=== PATIENT | female | born 1955 | race Hispanic/Latino ===

== ENCOUNTER 2017-07-08 15:35 | Observation (INO) | payer MEDICARE ==
[~2017-07-08] VITALS: Ht 154.9 cm; Wt 84.1 kg
[2017-07-08 15:57] LABS: EOSINOPHILS % (AUTO) 5.1 % (0.0-8.0); HEMATOCRIT 33.6 % (36-48); LYMPHOCYTES % (AUTO) 23.9 % (21.0-51.0); MEAN CORPUSCULAR HEMOGLOBIN 29.2 pg (27.0-33.0); MEAN CORPUSCULAR HGB CONC 33.8 g/dL (32.0-36.0); MEAN CORPUSCULAR VOLUME 86.4 fL (79-99); MONOCYTES % (AUTO) 7.6 % (3.0-13.0); NEUTROPHILS % (AUTO) 62.4 % (40.0-77.0); PLATELET COUNT (AUTO) 173 K/uL (130-400); RED BLOOD CELL COUNT(AUTO) 3.89 MIL/uL (4.00-5.50); RED CELL DISTRIBUTION WIDTH 14.3 % (11.0-15.5); WHITE BLOOD COUNT (AUTO) 7.4 K/uL (4.8-10.8)
[2017-07-08 16:12] LABS: CREATININE 1.7 mg/dL (0.5-1.5); POTASSIUM 5.3 mmol/L (3.5-5.1)
[2017-07-08 16:15] LABS: PARTIAL THROMBOPLASTIN TIME 25.2 SEC (26.3-35.5); PROTHROMBIN TIME 10.5 SEC (9.6-11.6)
[2017-07-08 16:17] LABS: ALBUMIN 3.3 g/dL (3.5-5.0); BILIRUBIN,TOTAL 0.3 mg/dL (0.2-1.0); TOTAL PROTEIN, SERUM 7.3 g/dL (6.0-8.3)
[2017-07-08 16:42] LABS: B-TYPE NATRIURETIC PEPTIDE 440 pg/mL (0-100)
[2017-07-08] MEDS ORDERED: NITROGLYCERIN 1GM/1 INCH PACKET TD ONE (17:33)
[2017-07-08 20:47] VITALS: BP 147/67
[2017-07-08 23:00] VITALS: BP 139/75
[2017-07-08] MEDS ORDERED: SODIUM POLYSTYRENE SULFONATE 15 GM/60 ML ML ONE ×2 (23:24)
[2017-07-08] MEDS ORDERED: SODIUM POLYSTYRENE SULFONATE 15 GM/60 ML ML PO SCH (23:30)
[2017-07-08] MEDS: NITROGLYCERIN 1GM/1 INCH PACKET TD SCH (23:30)
[2017-07-09] VITALS (7 sets, daily range): BP systolic 136–184; BP diastolic 66–79
[2017-07-09 00:15] LABS: CREATINE KINASE MB 1.2 ng/mL (0.5-3.6); CREATINE KINASE, TOTAL 69 U/L (21-232); MYOGLOBIN 77 ng/mL (10-92); TROPONIN I < 0.04 ng/mL (0.00-0.06)
[2017-07-09] MEDS ORDERED: ACET-66 PO (01:12)
[2017-07-09] MEDS ORDERED: CLOP75TA32 PO (01:12)
[2017-07-09] MEDS ORDERED: ISOS60TA4 PO (01:12)
[2017-07-09] MEDS ORDERED: ATOR40TA71 PO (01:12)
[2017-07-09] MEDS ORDERED: IRON-6 PO (01:12)
[2017-07-09] MEDS ORDERED: IRON FERROUS PO (01:12)
[2017-07-09] MEDS ORDERED: FURO40TA5 PO (01:12)
[2017-07-09] MEDS ORDERED: CARV25TA PO (01:12)
[2017-07-09] MEDS ORDERED: NITR0.4T SL (01:12)
[2017-07-09] MEDS ORDERED: RANO500T3 PO (01:12)
[2017-07-09] MEDS ORDERED: ENAL20TA PO (01:12)
[2017-07-09 08:39] LABS: HEMOGLOBIN A1C 8.8 % (4.0-6.0)
[2017-07-09 09:00] LABS: CREATINE KINASE MB 1.3 ng/mL (0.5-3.6); CREATINE KINASE, TOTAL 83 U/L (21-232); CREATININE 1.6 mg/dL (0.5-1.5); MYOGLOBIN 79 ng/mL (10-92); POTASSIUM 5.3 mmol/L (3.5-5.1); THYROID STIMULATING HORMONE 1.61 uIU/mL (0.36-3.74); TROPONIN I < 0.04 ng/mL (0.00-0.06)
[2017-07-09] MEDS ORDERED: METOPROLOL TARTRATE 25 MG TAB PO SCH (09:00)
[2017-07-09] MEDS: NITROGLYCERIN 1GM/1 INCH PACKET TD SCH (09:12)
[2017-07-09] MEDS ORDERED: ACETAMINOPHEN EXTRA STRENGTH 500 MG TABLET PO PRN (09:30)
[2017-07-09] MEDS ORDERED: NITROGLYCERIN 0.4 MG SL TAB SL PRN (09:30)
[2017-07-09] MEDS: ENALAPRIL MALEATE 10 MG TABLET PO SCH (11:37)
[2017-07-09] MEDS: REGADENOSON 0.4 MG/5 ML PF SYG IVP SCH ×2 (13:15→16:34)
[2017-07-09] MEDS: RANOLAZINE 500 MG TAB.SR.12H PO SCH (20:11)
[2017-07-09] MEDS: CARVEDILOL 25 MG TABLET PO SCH (20:11)
[2017-07-09] MEDS ORDERED: ATORVASTATIN CALCIUM 40 MG TABLET PO SCH (21:00)
[2017-07-09] MEDS ORDERED: DEXTROSE 50%-WATER 50 ML DISP.SYRIN IV PRN (22:45)
[2017-07-09] MEDS ORDERED: GLUCAGON 1MG KIT 1 MG ML IM PRN (22:45)
[2017-07-10 03:28] VITALS: BP 160/66
[2017-07-10] MEDS: INSULIN HUMULIN R 100 UNIT/ML 3ML SQ SCH ×2 (06:18→11:12)
[2017-07-10 07:00] VITALS: BP 182/77
[2017-07-10] MEDS ORDERED: INSULIN HUMULIN R 100 UNIT/ML 3ML SQ SCH ×3 (07:30→23:55)
[2017-07-10] MEDS ORDERED: FE FUMARATE/FA/MV, MIN COMB#15 1 TAB PO SCH (09:00)
[2017-07-10] MEDS ORDERED: ISOSORBIDE MONO 60 MG TAB.SR PO SCH (09:00)
[2017-07-10] MEDS ORDERED: CLOPIDOGREL BISULFATE 75 MG TAB PO SCH (09:00)
[2017-07-10] MEDS ORDERED: FERROUS SULFATE 325 MG TABLET.DR PO SCH (09:00)
[2017-07-10] MEDS ORDERED: FUROSEMIDE 40 MG TABLET PO SCH (09:00)
[2017-07-10] MEDS: RANOLAZINE 500 MG TAB.SR.12H PO SCH (09:40)
[2017-07-10] MEDS: ENALAPRIL MALEATE 10 MG TABLET PO SCH (09:40)
[2017-07-10] MEDS: CARVEDILOL 25 MG TABLET PO SCH (09:41)
[2017-07-10 10:28] VITALS: BP 157/78
[2017-07-10 11:00] VITALS: BP 146/69
== END 2017-07-10 12:50 | disposition home or self-care (01) ==
LOC: EDH 15:35 → EDHIP 17:25 → 2AH 20:48
PROVIDERS: ADMIT Family Medicine; ATTEND Family Medicine
DX: I25.119 Atherosclerotic heart disease of native coronary artery with unspecified angina pectoris (principal); N17.9 Acute kidney failure, unspecified; I12.9 Hypertensive chronic kidney disease with stage 1 through stage 4 chronic kidney disease, or unspecified chronic kidney disease; N18.9 Chronic kidney disease, unspecified; E78.5 Hyperlipidemia, unspecified; E11.22 Type 2 diabetes mellitus with diabetic chronic kidney disease; E11.65 Type 2 diabetes mellitus with hyperglycemia; E87.5 Hyperkalemia
CPT/HCPCS: 36415 ×2; 71045; 78452; 80048; 80053; 82550 ×3; 82553 ×2; 82948 ×7; 83036; 83874 ×2; 83880; 84443; 84484 ×3; 85025; 85610; 85730; 93005 ×3; 93017; 93970; 96372; 99285; A9500 ×2; G0378 ×43; J1815 ×2; J2785; 96374

== ENCOUNTER → 2017-10-23 | Outpatient (CLI) | payer MEDICARE ==
[~2017-10-23] MED LIST: ACET-66 PO; ATOR40TA71 PO; CARV25TA PO; CLOP75TA32 PO; ENAL20TA PO; FURO40TA5 PO; IRON FERROUS PO; IRON-6 PO; ISOS60TA4 PO; NITR0.4T SL; RANO500T3 PO
== END | disposition home or self-care (01) ==
LOC: SHCH 08:17
PROVIDERS: ATTEND Internal Medicine Cardiovascular Disease
DX: I20.9 Angina pectoris, unspecified (principal); R07.9 Chest pain, unspecified; E11.22 Type 2 diabetes mellitus with diabetic chronic kidney disease; E78.5 Hyperlipidemia, unspecified; N18.3 Chronic kidney disease, stage 3 (moderate)
CPT/HCPCS: 93306

== ENCOUNTER → 2017-11-11 | Outpatient (CLI) | payer MEDICARE ==
[~2017-11-11] VITALS: Ht 152.4 cm; Wt 82.6 kg
[~2017-11-11] MED LIST changes: +REGADENOSON 0.4 MG/5 ML PF SYG IVP SCH
== END | disposition home or self-care (01) ==
LOC: SHCH 08:39
PROVIDERS: ATTEND Internal Medicine Cardiovascular Disease
DX: I25.10 Atherosclerotic heart disease of native coronary artery without angina pectoris (principal); E11.65 Type 2 diabetes mellitus with hyperglycemia
CPT/HCPCS: 78452; 93017; 96374; A9500 ×2; J2785

== ENCOUNTER 2019-12-05 15:21 | Emergency (ER) | payer OTHER, MEDICARE ==
[~2019-12-05 15:21] MED LIST changes: -ENAL20TA PO; +ENAL20TA18 PO; -REGADENOSON 0.4 MG/5 ML PF SYG IVP SCH
[2019-12-05 15:53] LABS: BASOPHILS % (AUTO) 0.7 % (0.0-5.0); EOSINOPHILS % (AUTO) 4.7 % (0.0-8.0); HEMATOCRIT 32.2 % (36-48); LYMPHOCYTES % (AUTO) 20.6 % (21.0-51.0); MEAN CORPUSCULAR HEMOGLOBIN 27.8 pg (27.0-33.0); MEAN CORPUSCULAR HGB CONC 31.1 g/dL (32.0-36.0); MEAN CORPUSCULAR VOLUME 89.4 fL (79-99); MONOCYTES % (AUTO) 7.3 % (3.0-13.0); NEUTROPHILS % (AUTO) 66.4 % (40.0-77.0); PLATELET COUNT (AUTO) 252 K/uL (130-400); RED CELL DISTRIBUTION WIDTH 14.2 % (11.0-15.5)
[2019-12-05 16:04] LABS: INR 1.05 (0.85-1.15); PROTHROMBIN TIME 11.3 SEC (9.6-11.6)
[2019-12-05 16:10] LABS: POTASSIUM 4.7 mmol/L (3.5-5.1)
[2019-12-05 16:14] LABS: ALBUMIN 3.7 g/dL (3.5-5.0); BILIRUBIN,TOTAL 0.3 mg/dL (0.2-1.0); TOTAL PROTEIN, SERUM 7.9 g/dL (6.0-8.3)
[2019-12-05] MEDS ORDERED: ONDANSETRON HCL 4 MG/2 ML VIAL ONE (16:36)
[2019-12-05] MEDS ORDERED: FENTANYL CITRATE PF 50 MCG/1 ML 2ML VIAL ONE (16:37)
[2019-12-05] MEDS ORDERED: TETANUS/DIPHTHERIA TOXOID [ADULT] 0.5 ML VIAL IM ONE (17:15)
[2019-12-05] MEDS ORDERED: TRAMADOL HCL 50 MG TABLET ONE (17:39)
== END 2019-12-05 18:03 | disposition home or self-care (01) ==
LOC: EDH 15:21
DX: S52.601A Unspecified fracture of lower end of right ulna, initial encounter for closed fracture (principal); S52.501A Unspecified fracture of the lower end of right radius, initial encounter for closed fracture; S61.011A Laceration without foreign body of right thumb without damage to nail, initial encounter; S70.211A Abrasion, right hip, initial encounter; I10 Essential (primary) hypertension; I50.9 Heart failure, unspecified; E11.9 Type 2 diabetes mellitus without complications; E78.5 Hyperlipidemia, unspecified; Z87.891 Personal history of nicotine dependence; W18.39XA Other fall on same level, initial encounter; Y93.89 Activity, other specified; Y92.89 Other specified places as the place of occurrence of the external cause; Y99.8 Other external cause status
CPT/HCPCS: 29125; 36415; 70450; 71045; 72125; 73110; 73502; 80053; 82550; 84484; 85025; 85610; 85730; 90471; 90714; 93005; 96374; 96375; 99285; J2405; J3010

== ENCOUNTER → 2021-06-12 | Outpatient (CLI) | payer OTHER, MEDICARE ==
[~2021-06-12] MED LIST changes: -ACET-66 PO; +AMOX-426 PO; +ASPI-1197 PO; +CARV12.511 PO; -CARV25TA PO; -CLOP75TA32 PO; +FOLI0.8T2 PO; +FOLI1TAB61 PO; +GLIM2TAB30 PO; +INSU3INS3 SQ; -IRON FERROUS PO; -IRON-6 PO; -ISOS60TA4 PO; -NITR0.4T SL; +VITAD50000 PO
[2021-06-12 12:31] LABS: CREATININE 1.8 mg/dL (0.5-1.5); POTASSIUM 4.1 mmol/L (3.5-5.1)
== END | disposition home or self-care (01) ==
LOC: LAB 11:13
PROVIDERS: ATTEND Internal Medicine Cardiovascular Disease
DX: I25.5 Ischemic cardiomyopathy (principal)
CPT/HCPCS: 36415; 80048

== ENCOUNTER → 2021-06-12 | Outpatient (CLI) | payer OTHER, MEDICARE | END | disposition home or self-care (01) | LOC: SHCH 14:08 | PROVIDERS: ATTEND Internal Medicine Cardiovascular Disease | DX: I87.2 Venous insufficiency (chronic) (peripheral) (principal) | CPT/HCPCS: 93970 ==